=== PATIENT | female | born 1990 | race Asian ===

== ENCOUNTER → 2021-04-24 08:33 | Outpatient (CLI) | payer OTHER, SELFPAY ==
[2021-04-21 14:09] VITALS: BMI 18.5
[2021-04-24 13:30] LABS: Hemoglobin A1c 5.1 % (3.8-5.6)
[2021-04-24 13:41] LABS: Cholesterol 160 mg/dL (200); High Density Lipoprotein 71 mg/dL; Triglycerides 106 mg/dL; Very Low Density Lipoprotein 21 mg/dL (5-40)
== END ==
PROVIDERS: PCP Internal Medicine; Visit Provider Internal Medicine
DX: Z13.1 Encounter for screening for diabetes mellitus (principal); Z13.220 Encounter for screening for lipoid disorders
CPT/HCPCS: 36415; 80061; 83036

== ENCOUNTER 2021-04-29 13:19 | Outpatient (RCR) | payer OTHER, SELFPAY ==
[2021-04-21 14:09] VITALS: BMI 18.5
--- NOTE | 2021-04-29 14:17 | HP.PTEVAL_ITS ---
Patient's Visit Information TAMANNA MARRERO is a 30 year old F referred to Physical Therapy by Dr. Yaima Su MD with a diagnosis of Lumbago with sciatica.. Date of Evaluation: 04/29/21 Physical Therapist: Emilio Nuñez, DPT, OCS, CSCS - Visit Plan Frequency: 2-3x /Week Duration: 4-6 Weeks Plan: 2-3x/week for 2-4 weeks as needed for. 1. ext ROM and mobs as needed. 2. LB ROM remodelling stretches. 3. core strength progressing to HEP with pics, body mechanics instruct on lifting. - Subjective LBP if sits for 4-6 hours or if stands too long more than 2 hours it becomes painful L>R adn in middle. Weeks ago after lifting a table she hurt her back and had some L leg pain quad. This started 3 weeks ago lifting table. Lifting groceries painful a month prior. Limits sitting. No LB exercises. Walks as exercise. 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 This summer will go to [place] 3x/week for summer program. Will visit cities and drive to visit cities. Sleep is OK. Used to be hard to get out of bed but not anymore. Lying down feels better. Walking is not a problem. - Pain LBP Pain Intensity (Out of 10): 1 Pain Intensity Range: 0, 3 - Objective Flat lordosis in LB, tender to PA L5. reflexes 2/3 patella and achilles B. Sensation LE WNL to gross light touch. strength LE 4/5, core 3+/5, no pain. - slump, - SLR. LB AROM et painful centrally and min limited, SB and flexion full adn without pain. Repeated PPU improves ROM quickly and NE on pain. - Goals Goal 1:: Full low back ROM without pain Goal Time Frame: 4-6 Weeks Goal 2:: Pt feel 100% better and no LBP or leg pain. Goal Time Frame: 4-6 Weeks Goal 3:: I approp HEP for core and general strength adn body mechanics. Goal Time Frame: 4-6 Weeks Goal 4:: Oswestry score 1/10 at most. Goal Time Frame: 4-6 Weeks - Rehabilitation Potential Physical Therapy Diagnosis: Lumbago with scitiaca Rehabilitation Potential: Good - Anticipated Interventions Patient/Client Instruction: Educate patient on: Condition, Plan of Care For the Purpose of:: To decrease pain, To increase ROM, To improve muscle performance and motor function, To increase tolerance to activ ity/condition/position, To decrease level of supervision to perform tasks Therapeutic Exercise to Include: Strength training, Postural training, Flexibilty training, Gait and locomotor training, Passive ROM, Active ROM, Dynamic Lumbar Stabilization, Steph Exercises For the Purpose of:: To decrease pain, To increase ROM, To improve muscle performance and motor function, To increase tolerance to activity/condition/position, To improve gait and locomotor functions Manual Therapy Techniques to Include: Mobilization For the Purpose of:: To increase ROM TENS: Yes Cryotherapy (ice pack, ice massage): Yes For the Purpose of:: To decrease pain Thank you for the opportunity to evaluate your patient. For Medicare and Medicare HMO plans, please review the plan of care and approve it. It will need to be FAXED BACK to us at [phone] for Medicare purposes. For Medicare only, by signing this I certify the plan of care. Please let me know if there are questions or concerns regarding this plan of care. Physician Signature: Date:
--- NOTE | 2021-07-09 12:33 | HP.PT.NRP ---
TAMANNA MARRERO was seen in my office for initial evaluation on 04/29/21. The following Plan of Care was established for this patient: Initial Frequency: 2-3x /Week Initial Duration: 4-6 Weeks Patient/Client Instruction: Educate patient on: Condition, Plan of Care For the Purpose of:: To decrease pain, To increase ROM, To improve muscle performance and motor function, To increase tolerance to activity/condition/position, To decrease level of supervision to perform tasks Therapeutic Exercise to Include: Strength training, Postural training, Flexibilty training, Gait and locomotor training, Passive ROM, Active ROM, Dynamic Lumbar Stabilization, Steph Exercises For the Purpose of:: To decrease pain, To increase ROM, To improve muscle performance and motor function, To increase tolerance to activity/condition/position, To improve gait and locomotor functions Manual Therapy Techniques to Include: Mobilization For the Purpose of:: To increase ROM TENS: Yes Cryotherapy (ice pack, ice massage): Yes For the Purpose of:: To decrease pain This patient was last seen in our office 04/29/21. Pertinent comments regarding their Physical therapy will appear below: Pt seen one visit for evaluation adn POC established. No visits were attended and at this point, I will discontinue due to nonattendance. At this point I will be discontinuing this patient from physical therapy. I would be happy to see this patient again in the future if found appropriate by the physician. Thank you! Emilio Nuñez, DPT, OCS, CSCS Balance/Gait/Functional tests - Balance/Special Test Scores Oswestry Low Back Score: 5
== END 2021-04-29 19:00 | disposition home or self-care (01) ==
LOC: PT 13:19
PROVIDERS: PCP Internal Medicine; Referring Provider Internal Medicine; Visit Provider Internal Medicine
DX: M54.40 Lumbago with sciatica, unspecified side (principal)
CPT/HCPCS: 97162

== ENCOUNTER → 2021-05-22 12:27 | Outpatient (CLI) | payer OTHER, SELFPAY ==
[2021-05-20 14:12] VITALS: BMI 18.5
--- NOTE | 2021-05-22 12:29 | US_ITS ---
STUDY: ULTRASOUND OF THE FEMALE PELVIS - COMPLETE REASON FOR EXAM: Female, 30 years old. MENORRHAGIA LMP: 04/13/2021 TECHNIQUE: Transabdominal TECHNICAL QUALITY: Adequate. COMPARISON: None. FINDINGS: The uterus is anteverted and is in a midline position. The uterus measures 9.5 x 5.2 x 3.8 cm. Normal uterine cervix. The endometrium measures 7 mm in thickness, and is hyperechoic. There is no demonstrated endometrial mass. There is no demonstrated myometrial mass. I.U.D. - The patient does not have an I.U.D. The right ovary is visualized. The right ovary measures 4.0 x 3.7 x 1.5 cm. There is no right ovarian cyst or ovarian mass. There is no visualized right adnexal mass or complex lesion. There is normal arterial and normal venous vascularity. The left ovary is visualized. The left ovary measures 3.7 x 3.5 x 1.2 cm. There is no left ovarian cyst or ovarian mass. There is no visualized left adnexal mass or complex lesion. There is normal arterial and normal venous vascularity. There is no fluid in the cul-de-sac. The pre void volume of the bladder was 472 ml. The post void volume of the bladder was ml. Polycystic ovary disease: No. US/Pelvic (Non ) IMPRESSION: Normal female pelvis. Electronically Signed: Layo Peña MD at 15:27 EDT Tel , Service support ,
== END ==
PROVIDERS: PCP Internal Medicine; Referring Provider Nurse Practitioner Women's Health; Visit Provider Nurse Practitioner Women's Health
DX: N94.6 Dysmenorrhea, unspecified (principal)
CPT/HCPCS: 76856

== ENCOUNTER → 2024-07-25 | Outpatient (CLI) | payer BC, SELFPAY ==
--- NOTE | 2024-07-25 15:52 | RAD_ITS ---
EXAM: XR RIGHT FINGERS, 2 OR MORE VIEWS CLINICAL INDICATION: injury, mallet deform right pinky TECHNIQUE: Frontal, lateral and oblique views of the fingers of the right hand. COMPARISON: No relevant prior studies available. FINDINGS: BONES/JOINTS: There is flexion of the distal interphalangeal joint. No acute fracture. No subluxation. Normal alignment. No sclerotic or destructive changes observed. SOFT TISSUES: Unremarkable. No soft tissue swelling or gas. No radiopaque foreign body. RAD/Finger(s) Min 2 Views IMPRESSION: Flexion of the distal interphalangeal joint. There are no osseous abnormalities. Electronically Signed: Sam Lemus MD at 16:40 EDT ,
== END | disposition home or self-care (01) ==
LOC: RAD 15:45
PROVIDERS: PCP Internal Medicine; Referring Provider Internal Medicine; Visit Provider Internal Medicine
DX: M20.011 Mallet finger of right finger(s) (principal); W19.XXXA Unspecified fall, initial encounter
CPT/HCPCS: 73140